=== PATIENT | female | born 1995 | race Caucasian/White ===

== ENCOUNTER 2017-11-02 22:12 | Emergency (ER) | payer OTHER ==
[~2017-11-02] VITALS: Ht 170.2 cm; Wt 65.8 kg
[2017-11-02 22:17] VITALS: TEMP 36.7; Ht 170.2 cm; Wt 65.8 kg
[2017-11-02] MEDS ORDERED: BCTROWC EXT (22:36)
[2017-11-02] MEDS ORDERED: SULF800T23 PO (22:36)
[2017-11-02] MEDS ORDERED: CEPH500C PO (22:36)
[2017-11-02] MEDS ORDERED: CEPHALEXIN 500MG HOME PACK 1 EA BTL PO ONE (22:45)
[2017-11-02] MEDS ORDERED: SEPTRA DS HOME PACK 1 EA VIAL PO ONE (22:45)
[2017-11-02] MEDS ORDERED: MUPIROCIN 2% OINT 22 GM TUBE EXT ONE (22:45)
[2017-11-02 23:00] VITALS: BP 110/74; PULSE 66; O2SAT 100
--- NOTE | 2017-11-03 07:29 | EMERGENCY ROOM VISIT NOTE ---
History First contact with patient: 22:21 Chief Complaint: INFECTION Stated Complaint: PT THINKS SHE MAY HAVE A STAPH INFECTION History of Present Illness The patient is a 22 year old female who presents to the Emergency Room with complaints of infection of her forehead that has been worsening over the past 2- 3 days. The patient does not have any known exposure to disease. She is not diabetic and considers herself usually healthy. The patient notes that she initially had a very small patch of flaking skin along the left eyebrow that has now increased in size onto the forehead. She believes that she may have a staph infection. She has not had fever or chills. She rates her discomfort a 2 /10. Review of Systems More than 10 systems were reviewed and otherwise negative with the exception of history of present illness. Past Medical/Surgical History No chronic medical disease Social History Smoking Status: Never Smoker Occupation Status: [employer] Current/Historical Medications Scheduled Cephalexin Monohydrate (Keflex), 500 MG PO TID Mupirocin (Bactroban 2% Oint), 1 APPLN EXT BID Sulfa/Trimethoprim (Bactrim Ds 800MG/160MG), 1 TAB PO BID Physical Exam Vital Signs Date Time Temp Pulse Resp B/P (MAP) Pulse Ox O2 Delivery O2 Flow Rate FiO2 11/02/17 23:00 66 16 110/74 100 11/02/17 22:17 36.7 85 18 132/78 98 Room Air Physical Exam VITALS: Vitals are noted on the nurse's note and reviewed by myself. Vital signs stable. GENERAL: Well-developed, well-nourished, white female who is in no acute distress. HEAD: There is a 2 x 3 cm ovoid patch of erythema and skin discoloration along the left side forehead. No distinct abscess or drainage noted for culture. EARS: External ear normal. External auditory canals clear, tympanic membranes pearly [place] without erythema or effusion bilaterally. NECK: Supple without nuchal rigidity. No lymphadenopathy. No thyromegaly. HEART: Regular rate and rhythm without murmurs gallops or rubs. LUNGS: Clear to auscultation bilaterally without wheezes, rales or rhonchi. No retractions or accessory muscle use. Medical Decision & Procedures Medications Administered Medications (Trade) Dose Ordered Sig/Leo Route Start Time Stop Time Status Last Admin Dose Admin Trimethoprim/ Sulfamethoxazole (Sulfameth/ Trimeth Ds 800/ 160MG Home Pack) 1 homepack UD ONCE PO 11/02/17 22:45 11/02/17 22:46 DC 11/02/17 22:56 1 HOMEPACK Cephalexin Monohydrate (Keflex 500MG Home Pack) 1 homepack NOW ONCE PO 11/02/17 22:45 11/02/17 22:46 DC 11/02/17 22:56 1 HOMEPACK Mupirocin (Bactroban 2% Oint) 1 appln NOW ONCE EXT 11/02/17 22:45 11/02/17 22:46 DC 11/02/17 22:56 1 APPLN ED Course Physical exam and history were performed. Nursing notes, EMR, and Medication List were personally reviewed. Patient appears to have infection of her left forehead. There is no drainage or discharge for culture. The patient is not allergic and will be started on Bactrim and Keflex. I will also give her Bactroban topically. She will be continued on these medications as an outpatient. I did recommend that she have close follow-up with her primary care physician in the next few days for recheck. She is otherwise admitted back to the ER with any new, worsening, or concerning symptoms. The chart was completed utilizing [employer] Speech Voice Recognition Software. Grammatical errors, random word insertions, pronoun errors, and incomplete sentences are an occasional consequence of this system due to software limitations, ambient noise, and hardware issues. Any formal questions or concerns about the content, text, or information contained within the body of this dictation should be directly addressed to the provider for clarification. . Medical Decision Differential diagnosis: Etiologies such as cellulitis, abscess, MRSA infection, DVT, necrotizing fasciitis, dermatitis, drug eruption, as well as others were entertained.. Impression Primary Impression: Facial infection Departure Information Dispostion Home / Self-Care Condition GOOD Prescriptions Mupirocin (Bactroban 2% Oint) 66 Appln/22 Gm Oint 1 APPLN EXT BID for 5 Days, #1 TUBE Prov: Justus See PA-C 11/02/17 Cephalexin Monohydrate (Keflex) 500 Mg Cap 500 MG PO TID for 9 Days, #27 CAP Prov: Justus See PA-C 11/02/17 Sulfa/Trimethoprim (Bactrim Ds 800MG/160MG) Tab 1 TAB PO BID for 9 Days, #18 TAB Prov: Justus See PA-C 11/02/17 Forms HOME CARE DOCUMENTATION FORM, IMPORTANT VISIT INFORMATION Patient Instructions My [facility] Additional Instructions You were seen and evaluated today on an emergency basis only. This is not a substitute for, or an effort to provide, complete comprehensive medical care. It is not possible to recognize and treat all injuries or illnesses in a single emergency department visit. For this reason it is recommended that you followup with your primary care physician on Monday as scheduled for recheck. Trimethoprim-Sulfamethoxazole(Bactrim DS): Take one pill twice daily for 10 days for your skin infection. All antibiotics can cause diarrhea. If this occurs and you feel worse or it does not resolve in 1-2 days follow up with your doctor or return to the Emergency Department as this could be signs of serious underlying problems. Any medication can cause an allergic reaction, stop the pills immediately and return to the ER for rash, hives, breathing difficulties, or swelling. Cephalexin(Keflex) 500mg: Take one pill 3 times daily for 10 days for your skin infection. All antibiotics can cause diarrhea. If this occurs and you feel worse or it does not resolve in 1-2 days follow up with your doctor or return to the Emergency Department as this could be signs of serious underlying problems. Any medication can cause an allergic reaction, stop the pills immediately and return to the ER for rash, hives, breathing difficulties, or swelling. Apply Bactroban 2-3 times daily You are welcome to return to the emergency department anytime with new, worsening, or concerning symptoms.
== END 2017-11-02 23:00 | disposition home or self-care (01) ==
LOC: C.EDB 22:15
DX: L08.9 Local infection of the skin and subcutaneous tissue, unspecified (principal)